=== PATIENT | female | born 1965 | race Caucasian/White ===

== ENCOUNTER → 2016-08-29 | Outpatient (CLI) | payer OTHER ==
--- NOTE | 2016-08-29 08:38 | KCIC ---
EXAM: Bilateral digital screening mammogram. HISTORY: 51-year-old female presents for screening mammography. COMPARISON: TECHNIQUE: Full field digital craniocaudal and mediolateral oblique views of both breasts are obtained. Computer-aided detection is applied. FINDINGS: Breast parenchymal composition: Level B - Scattered fibroglandular densities. There is no new suspicious mass, calcification or architectural distortion within either breast. IMPRESSION: BI-RADS Category 2: Benign findings. Annual mammography is recommended. This study was interpreted with the benefit of Computerized Aided Detection (CAD). Mammography is not 100% sensitive in detecting breast cancer. Therefore, a self breast exam and a clinical breast exam are very important. A negative mammogram does not negate a clinically suspicious finding and should not result in a delay in biopsying a clinically suspicious abnormality. The patient information was entered into the reminder system with a target for her next mammogram. Electronically signed by: Ifeoma De La Torre (Aug 29, 2016 08:36:57)
== END | disposition home or self-care (01) ==
LOC: KCIC MAMMO 07:50
PROVIDERS: ATTEND Nurse Practitioner Family
DX: Z12.31 Encounter for screening mammogram for malignant neoplasm of breast (principal)
CPT/HCPCS: G0202; 77067

== ENCOUNTER 2016-10-24 23:54 | Emergency (ER) | payer OTHER ==
[~2016-10-24] VITALS: Ht 157.5 cm; Wt 117.9 kg
[2016-10-25] MEDS ORDERED: ATOR10TA PO (00:09)
[2016-10-25] MEDS ORDERED: LISI40TA PO (00:09)
[2016-10-25] MEDS ORDERED: METF500T4 PO (00:09)
[2016-10-25] MEDS ORDERED: IV NORMAL SALINE 1000ML BAG 1,000 ML IV SCH (00:30)
[2016-10-25] MEDS ORDERED: MORPHINE SULFATE 4 MG/ML DISP.SYRIN. IV ONE (00:30)
[2016-10-25] MEDS ORDERED: ONDANSETRON PF 4 MG/2 ML VIAL. IV ONE (00:30)
[2016-10-25 00:41] LABS: BASO # 0.1 x10^3/uL (0.0-0.2); BASO % 1 % (0-3); EOS % 5 % (0-3); HEMATOCRIT 42.4 % (36.0-47.0); HEMOGLOBIN 13.9 g/dL (12.0-15.5); LYMPH # 2.2 x10^3/uL (1.0-4.8); LYMPH % 17 % (24-48); MEAN CORPUSCULAR HEMOGLOBIN 30 pg (25-35); MEAN CORPUSCULAR HGB CONC 33 g/dL (31-37); MEAN CORPUSCULAR VOLUME 92 fL (79-100); MONO % 5 % (0-9); NEUT % 72 % (31-73); PLATELET COUNT 267 x10^3/uL (140-400); RED BLOOD COUNT 4.59 x10^6/uL (3.50-5.40); RED CELL DISTRIBUTION WIDTH 13.7 % (11.5-14.5); WHITE BLOOD COUNT 12.5 x10^3/uL (4.0-11.0)
[2016-10-25 00:56] LABS: BILIRUBIN,URINE SMALL (NEG); GLUCOSE,URINE NEGATIVE (NEG); NITRITE,URINE NEGATIVE (NEG); PH,URINE 5.5; PROTEIN,URINE NEGATIVE (NEG-TRACE)
[2016-10-25 01:02] LABS: CALCIUM 9.3 mg/dL (8.5-10.1); CREATININE 1.3 mg/dL (0.6-1.0); GFR 43.2; POTASSIUM 3.9 mmol/L (3.5-5.1)
[2016-10-25 01:02] LABS: BACTERIA,URINE 0 /HPF (0-FEW); SQUAMOUS EPITHELIAL CELL,UR MOD /LPF; WBC,URINE OCC /HPF (0-4)
[2016-10-25 01:07] LABS: ALBUMIN 3.4 g/dL (3.4-5.0); TOTAL BILIRUBIN 0.4 mg/dL (0.2-1.0); TOTAL PROTEIN 6.9 g/dL (6.4-8.2)
--- NOTE | 2016-10-25 01:25 | RAD ---
CT abdomen and pelvis without contrast: Reason for examination: Left flank pain tonight. Helical images were obtained through the abdomen and pelvis with no intravenous or oral contrast administered. Reconstruction was performed in sagittal and coronal planes. Exposure: One or more of the following individualized dose reduction techniques were used for this examination: 1. Automated exposure control. 2. Adjustment of the mA and/or kV according to patient size. 3. Use of iterative reconstruction technique. There appears to be a small calcified nodule at the posterior left lung base. The heart size is normal with no pericardial effusion evident. No abnormalities seen in the liver, gallbladder, pancreas, adrenal glands or spleen. The abdominal aorta and inferior vena cava show no acute abnormalities. No abnormalities seen in the appendix. The intestinal tract shows scattered diverticuli in the distal descending colon sigmoid colon but no diverticulitis. No abnormalities seen in the small intestinal tract. The right kidney shows no mass, renal calculi, hydronephrosis or evidence of obstructive uropathy. The left kidney shows a small nodule pad angulated off the lateral and inferior margin of the left kidney measuring approximately 1.5 centimeters in size and has Hounsfield unit measurements consistent with a cyst. There is mild hydronephrosis which appears to be related to a 3.3 millimeter calculus in the distal left ureter just above the ureterovesical junction. No abnormalities seen in the bladder, uterus or left ovary. There is a hypodense lesion suggested in the right ovary measuring approximately 2 centimeters in size which may represent a cyst. This can be further evaluated with ultrasound. No free fluid is seen. No acute bony abnormalities are seen. Impression: 3.3 millimeter calculus in the distal left ureter causing obstructive uropathy with mild hydronephrosis. 1.5 centimeter lesion probably representing a cyst at the lower pole of the left kidney. Probable 2 centimeter cystic lesion in the right ovary. This can be further evaluated with ultrasound. Electronically signed by: Shirin Alvarado MD (Oct 25, 2016 01:23:20)
[2016-10-25] MEDS ORDERED: HYDROMORPHONE 2 MG/ML VIAL. IV ONE ×2 (01:30→01:45)
[2016-10-25] MEDS ORDERED: ONDA4TAB10 SL (02:21)
[2016-10-25] MEDS ORDERED: OXYC-323 PO (02:21)
[2016-10-25] MEDS ORDERED: TAMS0.4C97 PO (02:21)
--- NOTE | 2016-10-25 02:21 | PHYS DOC ---
Past Medical History Past Medical History: Diabetes-Type I, Hypertension Past Surgical History: Other Additional Past Surgical Histo: deviated septum Alcohol Use: None Drug Use: None Adult General Chief Complaint Chief Complaint: ABDOMINAL PAIN HPI HPI Patient is a 51 year old female who presents with left lower quadrant/left flank pain. Patient reports pain started last night about 20-30 without clear inciting event. Patient describes the pain is 20 times worse than menstrual cramps. She denies any urinary symptoms. She does report some nausea and loose stools. She tried some Advil at home with insufficient relief. She is currently going through menopause. Review of Systems Review of Systems Constitutional: Denies fever or chills Eyes: Denies change in visual acuity or eye pain HENT: Denies nasal congestion or sore throat Respiratory: Denies cough or shortness of breath Cardiovascular: Denies chest pain GI: LLQ abdominal pain, nausea. Denies vomiting, bloody stools : Denies dysuria or hematuria Musculoskeletal: L flank pain Integument: Denies rash or skin lesions Neurologic: Denies headache, focal weakness or sensory changes Current Medications Current Medications Current Medications Medications (Trade) Dose Ordered Sig/Dee Dee Start Time Stop Time Status Last Admin Dose Admin Hydromorphone HCl (Dilaudid) 1 mg 1X ONCE 10/25/16 01:45 10/25/16 01:46 DC Morphine Sulfate 4 mg 1X ONCE 10/25/16 00:30 10/25/16 00:31 DC 10/25/16 00:53 4 MG Ondansetron HCl (Zofran) 4 mg 1X ONCE 10/25/16 00:30 10/25/16 00:31 DC 10/25/16 00:51 4 MG Sodium Chloride (Iv Sodium Chloride 0.9% 1000ml Bag) 1,000 ml @ 1,000 mls/hr Q1H 10/25/16 00:30 10/25/16 01:29 DC 10/25/16 00:50 1,000 MLS/HR Allergies Allergies Allergies Coded Allergies Type Severity Reaction Last Updated Verified No Known Drug Allergies 10/25/16 No Physical Exam Physical Exam Constitutional: Well developed, well nourished, non-toxic appearance HENT: Normocephalic, atraumatic, bilateral external ears normal Eyes: EOMI, conjunctiva normal, no discharge Neck: Normal range of motion, no stridor Cardiovascular: Heart rate normal, regular rhythm, no murmur Lungs & Thorax: Bilateral breath sounds clear to auscultation Abdomen: Bowel sounds normal, soft, non-distended, LLQ TTP without guarding or rebound Skin: Warm, dry, no erythema, no rash Back: No CVA tenderness Extremities: No obvious deformity, no edema Neurologic: Alert and oriented X 3, no gross deficits noted Current Patient Data Vital Signs Vital Signs Date Time Temp Pulse Resp B/P Pulse Ox O2 Delivery O2 Flow Rate FiO2 10/25/16 02:23 92 20 138/73 100 10/25/16 00:09 97.5 Room Air 97.5 Lab Values Laboratory Tests Test 10/24/16 23:53 10/25/16 00:35 10/25/16 00:50 POC Urine HCG, Qualitative Hcg negative (Negative) White Blood Count 12.5x10^3/uL (4.0-11.0) H Red Blood Count 4.59x10^6/uL (3.50-5.40) Hemoglobin 13.9g/dL (12.0-15.5) Hematocrit 42.4% (36.0-47.0) Mean Corpuscular Volume 92fL (79-100) Mean Corpuscular Hemoglobin 30pg (25-35) Mean Corpuscular Hemoglobin Concent 33g/dL (31-37) Red Cell Distribution Width 13.7% (11.5-14.5) Platelet Count 267x10^3/uL (140-400) Neutrophils (%) (Auto) 72% (31-73) Lymphocytes (%) (Auto) 17% (24-48) L Monocytes (%) (Auto) 5% (0-9) Eosinophils (%) (Auto) 5% (0-3) H Basophils (%) (Auto) 1% (0-3) Neutrophils # (Auto) 9.0x10^3uL (1.8-7.7) H Lymphocytes # (Auto) 2.2x10^3/uL (1.0-4.8) Monocytes # (Auto) 0.6x10^3/uL (0.0-1.1) Eosinophils # (Auto) 0.6x10^3/uL (0.0-0.7) Basophils # (Auto) 0.1x10^3/uL (0.0-0.2) Sodium Level 139mmol/L (136-145) Potassium Level 3.9mmol/L (3.5-5.1) Chloride Level 104mmol/L (98-107) Carbon Dioxide Level 23mmol/L (21-32) Anion Gap 12 (6-14) Blood Urea Nitrogen 24mg/dL (7-20) H Creatinine 1.3mg/dL (0.6-1.0) H Estimated GFR (Cockcroft-Gault) 43.2 BUN/Creatinine Ratio 18 (6-20) Glucose Level 152mg/dL (70-99) H Calcium Level 9.3mg/dL (8.5-10.1) Total Bilirubin 0.4mg/dL (0.2-1.0) Aspartate Amino Transferase (AST) 11U/L (15-37) L Alanine Aminotransferase (ALT) 13U/L (14-59) L Alkaline Phosphatase 58U/L (46-116) Total Protein 6.9g/dL (6.4-8.2) Albumin 3.4g/dL (3.4-5.0) Albumin/Globulin Ratio 1.0 (1.0-1.7) Lipase 71U/L (73-393) L Urine Collection Type Unknown Urine Color Yellow Urine Clarity Clear Urine pH 5.5 Urine Specific [place] >=1.030 Urine Protein Negativemg/dL (NEG-TRACE) Urine Glucose (UA) Negativemg/dL (NEG) Urine Ketones (Stick) 15mg/dL (NEG) Urine Blood Large (NEG) Urine Nitrite Negative (NEG) Urine Bilirubin Small (NEG) Urine Urobilinogen Dipstick 1.0mg/dL (0.2 mg/dL) Urine Leukocyte Esterase Negative (NEG) Urine RBC 3-5/HPF (0-2) Urine WBC Occ/HPF (0-4) Urine Squamous Epithelial Cells Mod/LPF Urine Calcium Phosphate Crystals /HPF Urine Amorphous Sediment Present/HPF Urine Bacteria 0/HPF (0-FEW) Urine Mucus Mod/LPF Laboratory Tests 10/25/16 00:35 Laboratory Tests 10/25/16 00:35 EKG EKG [] Radiology/Procedures Radiology/Procedures CT A/P: Impression: 3.3 millimeter calculus in the distal left ureter causing obstructive uropathy with mild hydronephrosis. 1.5 centimeter lesion probably representing a cyst at the lower pole of the left kidney. Probable 2 centimeter cystic lesion in the right ovary. This can be further evaluated with ultrasound. Course & Med Decision Making Course & Med Decision Making Pertinent Labs and Imaging studies reviewed. (See chart for details) Patient is 51-year-old female presents with left lower quadrant/left flank pain. Possible kidney stone. Will check CT abdomen/pelvis, labs, UA to evaluate. The fluids, nausea medication, pain medication ordered for relief of symptoms. Labs notable for hematuria and slight leukocytosis. Imaging results as above. Discussed results with patient. Patient feeling much better at this time. Will discharge home with prescription for nausea medication, pain medication, Flomax, instructions for follow-up with urology, return precautions. Dragon Disclaimer Dragon Disclaimer This electronic medical record was generated, in whole or in part, using a voice recognition dictation system. Departure Departure Impression: Primary Impression: Ureteral stone Disposition: HOME, SELF-CARE Condition: IMPROVED Referrals: HONG CAMPBELL APRN (PCP) JARRELL FREEMAN DO Patient Instructions: Diet for Kidney Stones, Kidney Stones Additional Instructions: Thank you for allowing us to provide care today in the Emergency Department. Take the provided medication as directed. Use caution when taking the pain medication as it can make you drowsy. Schedule a follow up appointment with a urologist using the provided contact information. Return promptly to the Emergency Department if you develop any new or concerning symptoms. Scripts Ondansetron (Zofran Odt)4 Mg Tab.rapdis1 Tab SL Q8HRS PRN NAUSEA #10 TAB Prov:EMANUEL JACOBS MD 10/25/16 Tamsulosin Hcl (Flomax)0.4 Mg Cap.er.24h0.4 Mg PO DAILY #14 TAB Prov:EMANUEL JACOBS MD 10/25/16 Oxycodone/Apap 5-325 (Percocet 5-325 Mg Tablet)1 Each Tablet1 Tab PO PRN Q6HRS PRN PAIN #20 TAB Ref 0 Prov:EMANUEL JACOBS MD 10/25/16 EMANUEL JACOBS MD Oct 25, 2016 02:21
[2016-10-25 02:23] VITALS: BP 138/73
== END 2016-10-25 02:41 | disposition home or self-care (01) ==
LOC: ER 23:54
DX: N21.1 Calculus in urethra (principal); E10.9 Type 1 diabetes mellitus without complications; I10 Essential (primary) hypertension
CPT/HCPCS: 36415; 74176; 80053; 81001; 81025; 83690; 85027; 96361; 96374; 96375; 99285; J2270; J2405; J7030

== ENCOUNTER → 2017-10-03 | Outpatient (CLI) | payer OTHER | END | disposition home or self-care (01) | LOC: KCIC MAMMO 08:10 | DX: Z12.31 Encounter for screening mammogram for malignant neoplasm of breast (principal) | CPT/HCPCS: 77067 ==

== ENCOUNTER → 2018-10-20 | Outpatient (CLI) | payer OTHER ==
[~2018-10-20] MED LIST: ATOR10TA PO; LISI-130 PO; METF500T16 PO; ONDA4TAB10 SL; OXYC1TAB15 PO; TAMS0.4C97 PO
--- NOTE | 2018-10-20 17:47 | KCIC ---
Bilateral digital screening mammograms with 3-D tomosynthesis: Reason for examination: Routine screening. Comparison is made to previous studies dated 10/03/2017 and 08/29/2016. Bilateral mammograms in CC and oblique projections were obtained with 2-D imaging and 3-D tomosynthesis imaging on a Siem[employer] Inspiration unit and reviewed on the workstation. Interpretation was made with the benefit of CAD. The skin and nipples show no abnormalities. No abnormal axillary lymph nodes are seen. The breast parenchyma is predominantly fatty. (Breast density: Category A.) There are no dominant masses, suspicious calcifications or architectural distortion. Benign calcifications are present. Impression: No evidence of malignancy. Recommend routine screening. BI-RAD Category 2: Benign. "Our facility is accredited by the [employer] Mammography Program." This patient's information has been entered into a reminder system for the patient to be notified with the results of her examination and a target date for the next mammogram. Electronically signed by: Graciela Alvarado MD (10/20/2018 5:44 PM) [id number]
== END | disposition home or self-care (01) ==
LOC: KCIC MAMMO 08:03
PROVIDERS: ATTEND Nurse Practitioner Family
DX: Z12.31 Encounter for screening mammogram for malignant neoplasm of breast (principal)
CPT/HCPCS: 77063; 77067

== ENCOUNTER → 2019-01-04 | Outpatient (CLI) | payer OTHER ==
--- NOTE | 2019-01-04 17:29 | KCIC ---
MR of the left shoulder HISTORY: Left shoulder pain after a fall in September. TECHNIQUE: Routine multiplanar sequences are obtained. FINDINGS: Mild motion degradation. The acromioclavicular joint is mildly degenerative. Diffuse thinning of the supraspinatus and infraspinatus tendon. There is broad undersurface irregularity and tearing throughout the supraspinatus and to a lesser extent the infraspinatus tendon. No full-thickness rupture. Partial subscapularis tendon tear. No advanced muscle atrophy. No significant subdeltoid bursal effusion. The biceps tendon is intact. No evidence of labral tear or para labral cyst. No bone destruction or acute fracture. IMPRESSION: Broad partial thickness undersurface rotator cuff tear of the supraspinatus and to lesser extent the infraspinatus tendon. This is greater than 50% deep anteriorly. Partial subscapularis tendon tear. Electronically signed by: Pedrito Olivares MD (01/04/2019 5:26 PM) [id number]
== END | disposition home or self-care (01) ==
LOC: KCIC MRI 15:34
PROVIDERS: ATTEND Nurse Practitioner Family
DX: S46.012A Strain of muscle(s) and tendon(s) of the rotator cuff of left shoulder, initial encounter (principal); X58.XXXA Exposure to other specified factors, initial encounter; Y93.89 Activity, other specified; Y92.89 Other specified places as the place of occurrence of the external cause; Y99.8 Other external cause status
CPT/HCPCS: 73221

== ENCOUNTER → 2019-08-23 | Outpatient (CLI) | payer OTHER ==
--- NOTE | 2019-08-23 20:05 | KCIC ---
Bilateral digital screening mammograms with 3-D tomosynthesis: Reason for examination: Routine screening. Comparison is made to previous studies dated 10/20/2018 and 10/03/2017. Bilateral mammograms in CC and oblique projections were obtained with 2-D imaging and 3-D tomosynthesis imaging on a Siemens Inspiration unit and reviewed on the workstation. Interpretation was made with the benefit of CAD. The skin and nipples show no abnormalities. No abnormal axillary lymph nodes are seen. The breast parenchyma is predominantly fatty. (Breast density: Category A.) There continues to be some nodularity anteriorly in the breasts which may reflect some ductal ectasia but is stable. There are no new dominant masses, suspicious calcifications or architectural distortion. Benign calcifications are present. Impression: No evidence of malignancy. Recommend routine screening. BI-RAD Category 2: Benign. "Our facility is accredited by the [employer] Mammography [employer]." This patient's information has been entered into a reminder system for the patient to be notified with the results of her examination and a target date for the next mammogram. Electronically signed by: Graciela Alvarado MD (08/23/2019 8:02 PM) [id number]
== END | disposition home or self-care (01) ==
LOC: KCIC MAMMO 16:37
PROVIDERS: ATTEND Nurse Practitioner Family
DX: Z12.31 Encounter for screening mammogram for malignant neoplasm of breast (principal)
CPT/HCPCS: 77063; 77067

== ENCOUNTER → 2020-10-06 | Outpatient (CLI) | payer OTHER ==
--- NOTE | 2020-10-06 16:01 | KCIC ---
Bilateral digital screening mammograms with 3-D tomosynthesis: Reason for examination: Routine screening. Comparison is made to previous studies dated back to 08/24/2015. Bilateral mammograms in CC and oblique projections were obtained with 2-D imaging and 3-D tomosynthes is imaging on a Siemens Inspiration unit and reviewed on the workstation. Interpretation was made wit scotty the benefit of CAD. The skin and nipples show no abnormalities. No abnormal axillary lymph nodes are seen. The breast par enchyma shows scattered fatty and fibroglandular density. (Breast density: Category B.) There continu es to be a small nodule in the subareolar 6:00 position of the right breast which is stable. There ar e no new dominant masses, suspicious calcifications or architectural distortion. Benign calcification s are present. Impression: No evidence of malignancy. Recommend routine screening. BI-RAD Category 2: Benign. "Our facility is accredited by the [employer] Mammography [employer]." This patient's information has been entered into a reminder system for the patient to be notified wit h the results of her examination and a target date for the next mammogram. Electronically signed by: Graciela Alvarado MD (10/06/2020 3:59 PM) [email or web address]
== END ==
LOC: KCIC MAMMO 09:32
PROVIDERS: ATTEND Nurse Practitioner Family
DX: Z12.31 Encounter for screening mammogram for malignant neoplasm of breast (principal)
CPT/HCPCS: 77063; 77067

== ENCOUNTER → 2021-11-07 | Outpatient (CLI) | payer BC ==
--- NOTE | 2021-11-07 17:15 | KCIC ---
Bilateral digital screening mammograms with 3-D tomosynthesis: Reason for examination: Routine screening. Comparison is made to previous studies dated back to 08/29/2016. Bilateral mammograms in CC and oblique projections were obtained with 2-D imaging and 3-D tomosynthes is imaging on a [employer] Inspiration unit and reviewed on the workstation. Interpretation was made with the benefit of CAD. The skin and nipples show no abnormalities. No abnormal axillary lymph nodes are seen. The breast par enchyma is predominantly fatty. (Breast density: Category A.) There are no dominant masses, suspiciou s calcifications or architectural distortion. A few scattered calcifications are again seen. Impression: No evidence of malignancy. Recommend routine screening. BI-RAD Category 2: Benign. "Our facility is accredited by the [employer] Mammography Program." This patient's information has been entered into a reminder system for the patient to be notified wit h the results of her examination and a target date for the next mammogram. Electronically signed by: Graciela Alvarado MD (11/07/2021 5:12 PM) [email or web address]
== END ==
LOC: KCIC MAMMO 15:52
PROVIDERS: ATTEND Nurse Practitioner Family
DX: Z12.31 Encounter for screening mammogram for malignant neoplasm of breast (principal)
CPT/HCPCS: 77063; 77067